=== PATIENT | male | born 1985 ===

== ENCOUNTER 2019-03-30 08:22 | Day surgery (SDC) | payer BC ==
[2019-03-30] MEDS ORDERED: ATROPINE 0.1% (CARDIAC) ONE (09:29)
[2019-03-30] MEDS ORDERED: PHENYLEPHRINE/NS Syringe 1,000 MCG/10 ML IV ONE (09:29)
[2019-03-30] MEDS ORDERED: ADRENALIN ONE (09:29)
[2019-03-30] MEDS ORDERED: XYLOCAINE CARDIAC IV ONE (09:29)
[2019-03-30] MEDS ORDERED: NACL 0.9% 500 ML 500 ML ONE (09:30)
[2019-03-30] MEDS ORDERED: NITROSTAT SL ONE (09:30)
[2019-03-30] MEDS ORDERED: NACL 0.9% 500 ML 500 ML IV SCH (10:00)
--- NOTE | 2019-03-30 10:52 | Short Stay Summary ---
Short Stay Documentation Date of service: 03/30/19 - History H&P: obtained from office - Allergies and Medications Current Medications: Allergies No Known Allergies Allergy (Unverified 03/30/19 08:42) Home Medications Medication Instructions Recorded Confirmed Last Taken Type Atenolol [Tenormin] 50 mg PO DAILY 03/30/19 03/30/19 03/29/19 History 1 tab Finasteride 1 mg PO DAILY 03/30/19 03/30/19 03/29/19 History 1 tab Omeprazole 40 mg PO DAILY 03/30/19 03/30/19 03/29/19 History 1 tab Active Medications Sodium Chloride (Nacl 0.9% 500 Ml) 500 mls @ 50 mls/hr IV DIRECT INES - Physical exam General appearance: no acute distress Integumentary: no rash HEENT: Atraumatic Lungs: Clear to auscultation Breasts: deferred Heart: Regular rate Gastrointestinal: normal Male Genitourinary: deferred Female Genitourinary: deferred Rectal Exam: deferred Extremities: no ischemia Neurological: Normal gait - Brief post op/procedure progress note Date of procedure: 03/30/19 Pre-op diagnosis: Syncope Post-op diagnosis: same Procedure: TTT Anesthesia: none Findings: See report Surgeon: CRISTHIAN PATEL Estimated blood loss: none Pathology: none Condition: stable - Hospital course Hospital course: Uneventful - Disposition Condition at discharge: Good Disposition: DC-01 TO HOME OR SELFCARE Short Stay Discharge Plan Activity: advance as tolerated, other (Avoid rapid changes in positions, heat exposure and prolong standing) Weight Bearing Status: Weight Bear as Tolerated Diet: regular Special Instructions: other ([place] fluid and salt intake) Follow up with: JEAN MARSHALL MD [Primary Care Provider] - 7 Days Prescriptions: Atenolol [Tenormin] 25 mg PO DAILY #30 tablet
[2019-03-30 10:58] VITALS: BP 109/83
--- NOTE | 2019-03-30 19:39 | Procedure Note ---
TILT TABLE TEST INDICATION: Syncope. ORDERING PHYSICIAN: Dr. Bernard. DESCRIPTION OF PROCEDURE: After obtaining the consent, the patient was brought to the cath lab radiological technologist area. The patient was secured on the tilt table test. Supine blood pressure was 115/80 with a supine heart rate of 46 beats per minute. The patient was tilted to 85 degrees from horizontal. After tilting, his blood pressure went to 128/101 with a heart rate of 89 sinus rhythm. The patient was maintained in the upright position for 10 minutes at the end of which his blood pressure was 131/95 with a heart rate of 70 beats per minute. He was subsequently given 0.4 mg of sublingual nitroglycerin. Five minutes into the nitroglycerin tablets, the blood pressure was 129/95 and heart rate was 127 beats per minute. Four minutes later, the patient did experience feeling dizzy and nauseated. Blood pressure dropped to 103/56 and the heart rate dropped to 38, junctional reno. At that stage, the patient was tilted back to horizontal with gradual recovery of his blood pressure; however, he remained in a junctional reno rhythm, necessitating the administration of 0.5 mg of IV atropine. IMPRESSION: This is a positive tilt table test with evidence of a cardioinhibitory response to nitroglycerin. Baseline heart rate was 57 beats per minute with evidence of a junctional escape rhythm. The heart rate after nitroglycerin dropped to 38 beats per minute junctional bradycardia and did not recover until atropine was given. RECOMMENDATION: The patient will be recommended to reduce his atenolol dose to 25 mg daily. The patient will be recommended for behavioral therapy including liberal salt and water intake. Avoidance of excessive or ureña changes in positions, avoiding heat exposure and avoiding long standing. The patient will follow up with referring manager machine. JOB# [id number] SEAN/AKASH
== END 2019-03-30 08:23 | disposition home or self-care (01) ==
LOC: CATH 08:22 → CATHLABREC 08:22
PROVIDERS: ATTEND Internal Medicine
DX: R55 Syncope and collapse (principal); I10 Essential (primary) hypertension; Z79.899 Other long term (current) drug therapy; Z82.49 Family history of ischemic heart disease and other diseases of the circulatory system
CPT/HCPCS: 93660; J0461; J7040; J0171; J2001; J2370